=== PATIENT | male | born 1980 ===

== ENCOUNTER 2021-10-09 10:18 | Inpatient (IN) ==
[2021-10-09] MEDS ORDERED: SODIUM CHLORIDE 0.9% 1,000 ML IV STA (10:48)
[2021-10-09 11:09] LABS: Mucus,Urine Occasional /LPF (Occasional); RBC,Urine 1 /HPF (0-4); Urine Color Yellow (Yellow)
[2021-10-09 11:10] LABS: Bilirubin,Urine Negative (Negative); Blood, Urine Negative (Negative); Glucose,Urine (UA) Negative (Negative); Ketones,Urine Negative (Negative); Nitrite,Urine Negative (Negative); Protein,Urine Negative (Negative); Urine Appearance Clear (Clear); Urine Specific Gravity > 1.030 (1.001-1.035); Urine Urobilinogen 0.2 eU/dL (<2.0); Urine pH 5.5 (4.5-8.0)
[2021-10-09 11:15] LABS: Albumin 3.5 G/DL (3.4-5.0); Bilirubin,Total 0.6 MG/DL (0.20-1.00); Calcium 8.3 MG/DL (8.5-10.1); Total Protein 6.8 G/DL (6.4-8.2)
[2021-10-09 11:17] LABS: Basophils # 0.1 10*3/uL (0.0-0.2); Basophils % 0.5 % (0.0-0.8); Eosinophils # 0.1 10*3/uL (0.0-0.87); Eosinophils % 1.2 % (0.00-10.9); Hematocrit 45.1 VOL% (42.0-52.0); Immature Granulocytes % 0.4 %; Immature Granulocytes Absolute 0.05 #; Lymphocytes # 1.7 10*3/uL (1.4-4.0); Lymphocytes % 14.9 % (21.2-54.2); Mean Corpuscular HGB Conc 33.3 GM/DL (32-36); Mean Corpuscular Volume 95.6 FL (87-102); Mean Platelet Volume 9.4 FL (9.6-12.0); Monocytes # 0.8 10*3/uL (0.11-0.8); Monocytes % 6.7 % (1.7-12.7); Neutrophils % 76.3 % (38.7-73.9); Platelet Count 269 T/CUMM (130-400); Red Blood Count 4.72 MC/CUMM (3.8-5.5); Red Cell Distribution Width 12.6 % (9.3-17.3); White Blood Count 11.4 T/CUMM (4-12)
[2021-10-09 11:18] LABS: Barbiturates Screen,Urine Negative (Negative); Benzodiazepines Screen,Urine Negative (Negative); Cannabinoid Screen,Urine Positive (Negative); Opiate Screen,Urine Positive (Negative); Phencyclidine Screen,Urine Negative (Negative)
[2021-10-09 11:19] LABS: Osmolality,Calculated 280.5 MOS/KG (273-304); Potassium 4.2 MMOL/L (3.5-5.1)
[2021-10-09] MEDS ORDERED: ACETAMINOPHEN 325 MG TABLET PO PRN (13:50)
[2021-10-09] MEDS ORDERED: HYDROmorphone 1 MG/1 ML SYRINGE IV PRN (13:50)
[2021-10-09] MEDS ORDERED: ONDANSETRON 4 MG/2 ML VIAL IV PRN (13:50)
[2021-10-09] MEDS: DOCUSATE SODIUM 100 MG CAPSULE PO SCH (21:54)
[2021-10-10 05:10] LABS: Basophils % 0.5 % (0.0-0.8); Eosinophils # 0.2 10*3/uL (0.0-0.87); Hematocrit 43.7 VOL% (42.0-52.0); Hemoglobin 14.6 GM/DL (14.0-18.0); Immature Granulocytes % 0.6 %; Immature Granulocytes Absolute 0.04 #; Lymphocytes # 2.4 10*3/uL (1.4-4.0); Lymphocytes % 36.6 % (21.2-54.2); Mean Corpuscular HGB Conc 33.4 GM/DL (32-36); Mean Corpuscular Volume 95.2 FL (87-102); Mean Platelet Volume 9.4 FL (9.6-12.0); Monocytes # 0.6 10*3/uL (0.11-0.8); Monocytes % 9.2 % (1.7-12.7); Neutrophils % 50.1 % (38.7-73.9); Platelet Count 267 T/CUMM (130-400); Red Blood Count 4.59 MC/CUMM (3.8-5.5); Red Cell Distribution Width 12.6 % (9.3-17.3); White Blood Count 6.4 T/CUMM (4-12)
[2021-10-10 05:27] LABS: Calcium 8.3 MG/DL (8.5-10.1); Osmolality,Calculated 278.4 MOS/KG (273-304); Potassium 3.8 MMOL/L (3.5-5.1)
[2021-10-10] MEDS ORDERED: PANTOPRAZOLE 40 MG TABLET PO SCH (06:00)
[2021-10-10] MEDS ORDERED: LIDOCAINE 2% 5 ML VIAL ONE (06:20)
[2021-10-10] MEDS ORDERED: ROCURONIUM 50 MG/5 ML VIAL IV ONE (06:20)
[2021-10-10] MEDS ORDERED: fentaNYL 100 MCG/2 ML VIAL ONE (06:20)
[2021-10-10] MEDS ORDERED: propofoL 200 MG/20 ML VIAL IV ONE (06:20)
[2021-10-10] MEDS ORDERED: MIDAZOLAM 2 MG/2 ML VIAL ONE (06:20)
[2021-10-10] MEDS ORDERED: DEXAMETHASONE 4 MG/1 ML VIAL ONE (06:29)
[2021-10-10] MEDS ORDERED: BUPIVACAINE MPF 0.25% 30 ML VIAL ONE (06:29)
[2021-10-10] MEDS ORDERED: BUPIVACAINE MPF 0.25% 10 ML VIAL ONE (06:40)
[2021-10-10] MEDS ORDERED: LIDOCAINE 1%/EPI INJ 20 ML VIAL ONE (06:40)
[2021-10-10] MEDS ORDERED: LACTATED RINGERS 1,000 ML IV SCH (07:30)
[2021-10-10] MEDS ORDERED: ceFAZolin 1,000 MG VIAL ONE (07:31)
[2021-10-10] MEDS ORDERED: ACETAMINOPHEN INJ 1,000 MG/100 ML VIAL IV ONE (07:31)
[2021-10-10] MEDS ORDERED: KETOROLAC 30 MG/1 ML VIAL ONE (07:33)
[2021-10-10] MEDS ORDERED: ONDANSETRON 4 MG/2 ML VIAL ONE (07:35)
[2021-10-10] MEDS ORDERED: NEOSTIGMINE 10 MG/10 ML VIAL ONE (07:36)
[2021-10-10] MEDS ORDERED: GLYCOPYRROLATE 0.4 MG/2 ML VIAL ONE (07:36)
[2021-10-10] MEDS ORDERED: TISSUE ADHESIVE 1 EACH APPLICATOR TOP ONE (07:51)
[2021-10-10] MEDS ORDERED: SEVOFLURANE 1 UNIT/15 MINUTE INH ONE (07:55)
[2021-10-10] MEDS ORDERED: ENOXAPARIN 40 MG/0.4 ML SYRINGE SUBCUT SCH (08:00)
[2021-10-10] MEDS: DOCUSATE SODIUM 100 MG CAPSULE PO SCH (10:56)
[2021-10-10 16:39] VITALS: BP 116/75
== END 2021-10-10 17:02 | disposition home or self-care (01) | DRG 352 ==
LOC: N.ED 10:18 → N.EDINP 13:50 → N.3E 15:35
PROVIDERS: ADMIT Surgery; ATTEND Surgery